=== PATIENT | male | born 1995 | race Caucasian/White ===

== ENCOUNTER 2017-02-22 13:13 | Emergency (ER) | payer SELFPAY ==
[~2017-02-22] VITALS: Ht 180.3 cm; Wt 74.8 kg
[~2017-02-22 13:13] MED LIST: HYDR-1231 PO
--- NOTE | 2017-02-22 13:29 | ED Upper Extremity ---
General Stated Complaint: HAND LACERATION Source: patient Exam Limitations: no limitations History of Present Illness Time seen by provider: 13:27 Initial Comments To ER with complaints of laceration to the dorsal aspect of the proximal right pinky finger from a piece of sheet metal just prior to arrival. His tetanus is not up-to-date. Onset: just prior to arrival Severity: moderate Pain/Injury Location: right 5th finger Modifying Factors: Worse With Movement Allergies and Home Medications Allergies Coded Allergies: No Known Drug Allergies (Unverified , 02/22/17) Home Medications Hydrocodone Bit/Acetaminophen 1 Tab Tablet, 1 TAB PO Q6H PRN for PAIN, #20 Prescribed by: YORDY PARISH on 03/12/14 9562 Constitutional: see HPI EENTM: see HPI Respiratory: no symptoms reported Cardiovascular: no symptoms reported Genitourinary: no symptoms reported Musculoskeletal: no symptoms reported Skin: no symptoms reported Psychiatric/Neurological: No Symptoms Reported Past Hfxtndg-Jucruy-Tfgusg Hx Patient Social History Recent Foreign Travel: No Contact w/Someone Who Travel: No Surgeries HX Surgeries: No Physical Exam Vital Signs Capillary Refill : General Appearance: WD/WN, no apparent distress HEENT: PERRL/EOMI, normal ENT inspection Neck: non-tender, full range of motion Respiratory: no respiratory distress, no accessory muscle use Gastrointestinal: normal bowel sounds, non tender, soft Shoulder: normal inspection, non-tender Elbow/Forearm: normal inspection, no evidence of injury, Right Hand: Left, laceration (1 semi-laceration to the dorsal aspect of the proximal phalanx right pinky finger. He is able to fully extend the finger evening as resistance and there is no evidence for extensor tendon injury) Neurologic/Tendon: normal sensation, normal motor functions, normal tendon functions Neurologic/Psychiatric: alert, normal mood/affect, oriented x 3 Skin: normal color, warm/dry Laceration Repair : Wound Location: Upper Extremities Wound Length (cm): 1 Wound's Depth, Shape: linear Irrigated w/ Saline (ccs): 20 Anesthesia: 1% Lidocaine Suture: Prolene Suture Size: 5-0 Number of Sutures: 4 Layer Closure?: 1 Progress/Results/Core Measures Results/Orders My Orders Orders - YORDY PARISH BATCH UNIT TREATER Lidocaine 2% Injection 20 Ml (Xylocaine (02/22/17 13:30) Dipht,Pertuss(Acell),Tet Adult (Boostrix (02/22/17 13:30) Medications Given in ED Current Medications Medications Dose Ordered Sig/Amanda Route Start Time Stop Time Status Last Admin Dose Admin Diphtheria/ Tetanus/Acell Pertussis 0.5 ml ONCE ONCE IM 02/22/17 13:30 02/22/17 13:31 DC 02/22/17 13:33 0.5 ML Lidocaine HCl 2 ml ONCE ONCE INJ 02/22/17 13:30 02/22/17 13:31 DC 02/22/17 13:33 2 ML Departure Impression Impression: Primary Impression: Finger laceration Disposition: 01 HOME, SELF-CARE Condition: Stable Departure-Patient Inst. Decision time for Depature: 13:28 Referrals: NO,LOCAL PHYSICIAN (PCP/Family) Primary Care Physician Patient Instructions: Laceration Repair With Stitches (DC) Add. Discharge Instructions: 1. Return to ER for any concerns 2. Return to ER in 7-10 days to have the stitches removed at a time of your convenience 3. You may wash the hand leading water run over it gently starting tomorrow but keep it dry today. Also do not soak it in water such as a [place], swimming pool, hot tub or bathtub until the stitches removed in 7-10 days 4. Return to ER before then for any sign of infection such as redness or swelling at the site YORDY PARISH APRN February 22, 2017 13:29
[2017-02-22] MEDS ORDERED: LIDOCAINE 2% 20 ML (XYLOCAINE) VIAL INJ ONE (13:30)
[2017-02-22] MEDS ORDERED: TETANUS,DIPTH,PERTUSS P/F (BOOSTRIX) 0.5 ML VIAL IM ONE (13:30)
[2017-02-22 13:40] VITALS: BP 124/70
== END 2017-02-22 13:40 | disposition home or self-care (01) ==
LOC: EDUNIT# 13:13 → ER 13:16
DX: S61.216A Laceration without foreign body of right little finger without damage to nail, initial encounter (principal); Z23 Encounter for immunization; W45.8XXA Other foreign body or object entering through skin, initial encounter; Y99.8 Other external cause status
CPT/HCPCS: 90471; 90715

== ENCOUNTER 2021-07-02 01:52 | Emergency (ER) | payer BC ==
[~2021-07-02] VITALS: Ht 180.3 cm; Wt 80.0 kg
[2021-07-02 02:05] VITALS: BP 132/91
[2021-07-02] MEDS ORDERED: FLUORESCEIN (FLUOR-I-STRIPS) 1 MG STRP ONE (02:13)
[2021-07-02] MEDS ORDERED: TETRACAINE 0.5% OPHTH SOLN 4 ML BTL (SINGLE DOSE ONLY) ONE (02:13)
[2021-07-02] MEDS ORDERED: BSS 15 ML ONE (02:13)
[2021-07-02] MEDS ORDERED: TETRACAINE 0.5% OPHTH SOLN 4 ML BTL (SINGLE DOSE ONLY) OP ONE (02:15)
--- NOTE | 2021-07-02 02:26 | ED EENT ---
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 DID NOT HAVE PAIN OR NOTICE ANY PROBLEMS WITH EYE UNTIL HE TRIED TO GO TO SLEEP SUNDAY NIGHT NO VISION CHANGES NO PURULENT DRAINAGE FROM EYE AND NO MATTING OF EYE EYE HAS BEEN WATERING ALOT DOES NOT WEAR GLASSES OR CONTACTS NO PRIOR PROBLEMS WITH EYE LAST TETANUS SHOT IS UNKNOWN PCP: NONE Allergies and Home Medications Allergies Coded Allergies: No Known Drug Allergies (Unverified , 02/22/17) Patient Home Medication List Home Medication List Reviewed: Yes Hydrocodone Bit/Acetaminophen (Hydrocodone-Apap 5-325 Tablet) 1 Tab Tablet, 1 TAB PO Q6H PRN for PAIN Prescribed by: YORDY PARISH on 03/12/14 9552 Review of Systems Review of Systems Constitutional: no symptoms reported Eyes: See HPI Neurological: No Symptoms Reported Past Utwjenc-Yhdkjk-Sjkupm Hx Past Medical History Surgeries: No Respiratory: No Cardiac: No Neurological: No Genitourinary: No Gastrointestinal: No Musculoskeletal: No Endocrine: No HEENT: No Cancer: No Integumentary: No Blood Disorders: No Physical Exam Height, Weight, BMI Height: 5'11.00" Weight: 165lbs. oz. 74.288670cp; BMI Method:Stated General Appearance: WD/WN, no apparent distress, other (CONSTANTLY RUBBING LEFT EYE) Eyes: right eye normal inspection; left eye other (CONJUNCTIVA INFLAMED, WITH MUCH TEARING TO LEFT EYE. FOREIGN BODY NOTED TO CORNEA AT 8:00. 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 GENTAMICIN DROPS INSTILLED IN EYE Suture Size: 5-0 Progress/Results/Core Measures Results/Orders My Orders Orders - STEVAN MEJIA DO Tetracaine 0.5% Ophth Gela Sdv (Tetracai (07/02/21 02:15) Fluorescein Strips (Bekeq-F-Jrrlum) (07/02/21 02:13) Tetracaine 0.5% Ophth Gela Sdv (Tetracai (07/02/21 02:13) Balanced Salt Irrigation Soln (Bss Irrig (07/02/21 02:13) Dipht,Pertuss(Acell),Tet Adult (Boostrix (07/02/21 02:30) Gentamicin 0.3% Ophth Solution (Garamyci (07/02/21 02:30) Departure Impression Primary Impression: Foreign body of left cornea Additional Impression: Aqsasfdpzf-gmdtxnrez-tcktyqj (DPT) vaccination administered at current visit Disposition: 01 HOME, SELF-CARE Condition: Stable Departure-Patient Inst. Decision time for Depature: 02:24 Referrals: NO,LOCAL PHYSICIAN (PCP/Family) Primary Care Physician Patient Instructions: Diphtheria and Tetanus Toxoids, and Acellular Pertussis Vaccine, Foreign Body in Eye ED Add. Discharge Instructions: DO NOT RUB EYE!! TYLENOL AND MOTRIN NEEDED FOR PAIN RETURN TO ER TOMORROW FOR RECHECK OF EYE USE EYE DROPS 2 DROPS EVERY 4 HOURS STEVAN MEJIA DO Jul 02, 2021 02:26
[2021-07-02] MEDS ORDERED: TETANUS,DIPTH,PERTUSS P/F (BOOSTRIX) 0.5 ML VIAL IM ONE (02:30)
[2021-07-02] MEDS ORDERED: GENTAMICIN 0.3% OPHTH SOLN 5 ML OP SCH (02:30)
== END 2021-07-02 02:40 | disposition home or self-care (01) ==
LOC: EDUNIT# 01:52 → ER 01:59
DX: T15.02XA Foreign body in cornea, left eye, initial encounter (principal); Z23 Encounter for immunization
CPT/HCPCS: 90715; 99284

== ENCOUNTER 2021-07-02 09:14 | Emergency (ER) | payer BC ==
[~2021-07-02] VITALS: Ht 180 cm; Wt 81.0 kg
[2021-07-02 09:25] VITALS: BP 143/97
--- NOTE | 2021-07-02 09:31 | ED EENT ---
History of Present Illness General Chief Complaint: Eye Problems Stated Complaint: RECHECK LEFT EYE Nursing Triage Note: ARRIVED VIA AMB WITH CONTINUED COMPLAINTS ABOUT HIS RIGHT EYE. WAS SEEN HERE EARLY AM. Source: patient Exam Limitations: no limitations History of Present Illness Date Seen by Provider: Jul 02, 2021 Time Seen by Provider: 09:25 Initial Comments Patient is a 26-year-old male who presents to the emergency department with a chief complaint of ongoing discomfort in his left eye. Patient was seen here last night with complaints of a foreign body sensation. Had been putting on a metal roof and thinks that may be a little piece of metal may have gotten underneath his protective eyewear. He was seen by Dr. MEJIA and she documents that she was able to remove a small foreign body at the 8 o'clock position of the left eye with a needle. She question whether or not a residual rust ring was left. Patient was placed on gentamicin eyedrops. He did take a couple of ibuprofen prior to coming into the emergency department. He states his nose is running in his eye is tearing as a result of the discomfort. He complains of a little bit of blurry vision. reports that she used a dye stain to look in his eye. Tetanus shot was updated last night. All other review of systems reviewed and negative except as stated. Timing/Duration: abrupt Location: eye (L) Prearrival Treatment: prescription meds Associated Symptoms: other Allergies and Home Medications Allergies Coded Allergies: No Known Drug Allergies (Unverified , 02/22/17) Patient Home Medication List Home Medication List Reviewed: Yes Hydrocodone Bit/Acetaminophen (Hydrocodone-Apap 5-325 Tablet) 1 Tab Tablet, 1 TAB PO Q6H PRN for PAIN Prescribed by: YORDY PARISH on 03/12/14 5844 Review of Systems Review of Systems Constitutional: see HPI Eyes: Blurred Vision Ears: No Symptoms Reported Nose: clear discharge Mouth: no symptoms reported Throat: no symptoms reported Respiratory: no symptoms reported Cardiovascular: no symptoms reported Gastrointestinal: no symptoms reported Musculoskeletal: no symptoms reported Skin: no symptoms reported All Other Systems Reviewed Negative Unless Noted: Yes Past Vlnpojl-Hgskmf-Vdztds Hx Patient Social History Tobacco Use?: No Substance use?: Yes Substance type: Marijuana Alcohol Use?: Yes Alcohol Frequency: Couple times a week Past Medical History Surgeries: No Respiratory: No Cardiac: No Neurological: No Genitourinary: No Gastrointestinal: No Musculoskeletal: No Endocrine: No HEENT: No Cancer: No Integumentary: No Blood Disorders: No Visual Acuity : Vision Acuity Degree: 20/200 (Left) Physical Exam Vital Signs Vital Signs - First Documented 07/02/21 09:25 Temp 36.7 Pulse 82 Resp 16 B/P (MAP) 143/97 (112) Pulse Ox 98 O2 Delivery Room Air Height, Weight, BMI Height: 5'11.00" Weight: 165lbs. oz. 74.506744wc; 25.00 BMI Method:Stated General Appearance: WD/WN, no apparent distress Eyes: left eye conjunctival inflammation, left eye lid inflammation, left eye vision changes; bilateral eye PERRL, bilateral eye EOMI Mouth/Throat: normal mouth inspection Neck: normal inspection Respiratory: no respiratory distress, no accessory muscle use Neurologic/Psychiatric: alert, normal mood/affect, oriented x 3 Skin: normal color, warm/dry Procedures/Interventions Eye : Location: left eye Progress/Procedure Conclusion evaluated with Slit lamp. significant conjunctival inflammation, ciliary flush. no foreign body. no rust ring was identified. Suture Size: 5-0 Progress/Results/Core Measures Results/Orders Vital Signs/I&O 07/02/21 09:25 Temp 36.7 Pulse 82 Resp 16 B/P (MAP) 143/97 (112) Pulse Ox 98 O2 Delivery Room Air Blood Pressure Mean: 112 Progress Progress Note : Time: 09:47 Progress Note Visual acuity noted at 20/25 right eye; 20/200 left eye. advised continued antibiotic drops, artifical tears and follow up with eye doc tor's office on Sunday. Departure Impression Primary Impression: Conjunctivitis Qualified Codes: H10.32 - Unspecified acute conjunctivitis, left eye Additional Impression: Blurred vision, left eye Disposition: 01 HOME, SELF-CARE Condition: Stable Departure-Patient Inst. Decision time for Depature: 09:45 Referrals: [facility] (PCP/Family) Primary Care Physician RICHARD TAMEZ OD Patient Instructions: Conjunctivitis ([place]) (DC) Add. Discharge Instructions: Use artificial tears to help keep the eye moistened and relieve discomfort. Continue to use the antibiotic drops as prescribed last night. Take vjan-phu-finozzb ibuprofen 2 to 3 tablets every 6 hours with food as needed for discomfort. Please follow-up with an eye doctor early this week. I have given you contact information. Call Sunday morning for an appointment within the first couple of days of the week. (Dr Tamez) Return to the emergency room if you develop fever, pus-like eye drainage, eye pain or any other emergent concerning complaints. NEAL QUINONES MD Jul 02, 2021 09:31
== END 2021-07-02 09:50 | disposition home or self-care (01) ==
LOC: EDUNIT# 09:14 → ER 09:17
DX: H10.9 Unspecified conjunctivitis (principal); H53.8 Other visual disturbances; Z23 Encounter for immunization
CPT/HCPCS: 99282